=== PATIENT | male | born 1955 ===

== ENCOUNTER 2018-06-06 12:59 | Outpatient (CLI) | payer BC ==
--- NOTE | 2018-06-06 16:42 | Diagnostic Imaging Report ---
Indication: Cough Technique: 2 views of the chest Comparison: none Findings: Lungs and pleural spaces are clear. The heart size is normal. Impression: Negative
== END 2018-06-06 14:59 | disposition home or self-care (01) ==
LOC: RAD 12:59
DX: Z01.818 Encounter for other preprocedural examination (principal); R05 Cough
CPT/HCPCS: 71046